=== PATIENT | female | born 1935 | race Caucasian/White ===

== ENCOUNTER → 2020-02-17 | Outpatient (CLI) | payer MEDICARE, OTHER ==
--- NOTE | 2020-02-17 12:36 | FL ---
EXAMINATION TYPE: FL barium swallow DATE OF EXAM: 02/17/2020 COMPARISON: None HISTORY: Foreign body sensation, dysphagia TECHNIQUE: Fluoroscopy time: 28 seconds Images: 7 Contrast: Isovue 370 Esophagus opens to normal caliber has normal contour to the gastroesophageal junction. Gastroesophage al junction opens to normal caliber. No suspicious intraluminal or extramural defects are evident. No radiopaque foreign bodies are identified. There is presbyesophagus within the distal esophagus with a few tertiary contractions present. There is complete stripping the esophageal bolus the horizontal drinking position. IMPRESSIONS: 1. Mild presbyesophagus. 2. No suspicious filling defects or radiopaque foreign bodies.
== END | disposition home or self-care (01) ==
LOC: RADUSWWP 09:21
PROVIDERS: ATTEND Family Medicine
DX: K22.8 Other specified diseases of esophagus (principal)
CPT/HCPCS: 74220; Q9967

== ENCOUNTER 2020-09-23 18:30 | Emergency (ER) | payer MEDICARE, OTHER ==
[2020-09-23 18:42] VITALS: BP 151/48; PULSE 73; RESP 16
[2020-09-23] MEDS ORDERED: TOPICAL SKIN ADHESIVE 1 EACH AMP TOPICAL STA (19:01)
[2020-09-23] MEDS ORDERED: DIPH,PERTUS(ACELL)TETVAC-LF 0.5 ML VIAL IM ONE (19:01)
--- NOTE | 2020-09-23 19:42 | ED ---
General Adult HPI - General Chief complaint: Wound/Laceration Stated complaint: dog scratch on arm Time Seen by Provider: 09/23/20 18:47 Source: patient, family Mode of arrival: wheelchair Limitations: no limitations - History of Present Illness Initial comments: 84-year-old female currently anticoagulated with Eliquis presents to the emergency room for a skin tear. Patient reports her dog was on her lap when he went to run off and her arm. This caused a small skin tear to the left forearm. However was bleeding more than a Band-Aid to control so they brought her into the emergency room. Patient does not think her tetanus is up-to-date. Patient states the bleeding has improved significantly since their arrival.Patient has no other complaints at this time including shortness of breath, chest pain, abdominal pain, nausea or vomiting, headache, or visual changes. - Related Data Home Medications Medication Instructions Recorded Confirmed Albuterol Sulfate [Proair Hfa] 1 puff INHALATION QID PRN 08/20/14 08/20/14 Levothyroxine Sodium [Synthroid] 25 mcg PO DAILY 08/20/14 08/20/14 Simvastatin 10 mg PO DAILY 08/20/14 08/20/14 glipiZIDE [Glipizide] 5 mg PO DAILY 08/20/14 08/20/14 lisinopriL [Zestril] 2.5 mg PO DAILY 08/20/14 08/20/14 metFORMIN HCL 500 mg PO DAILY 08/20/14 08/20/14 Allergies Allergy/AdvReac Type Severity Reaction Status Date / Time No Known Allergies Allergy Verified 09/23/20 18:37 Review of Systems ROS Statement: Those systems with pertinent positive or pertinent negative responses have been documented in the HPI. ROS Other: All systems not noted in ROS Statement are negative. Past Medical History Past Medical History: Asthma, Diabetes Mellitus Additional Past Medical History / Comment(s): Arthritis History of Any Multi-Drug Resistant Organisms: None Reported Past Surgical History: Appendectomy Additional Past Surgical History / Comment(s): Partial hysterectomy Past Anesthesia/Blood Transfusion Reactions: No Reported Reaction Additional Past Anesthesia/Blood Transfusion Reaction / Comment(s): Never had blood transfusion Past Psychological History: No Psychological Hx Reported Smoking Status: Never smoker Past Alcohol Use History: None Reported Past Drug Use History: None Reported - Past Family History Mother Family Medical History: Hypertension, Myocardial Infarction ([place]) Father Family Medical History: Cancer Additional Family Medical History / Comment(s): from cancer (lung) General Exam Limitations: no limitations General appearance: alert, in no apparent distress Head exam: Present: atraumatic, normocephalic, normal inspection Eye exam: Present: normal appearance, PERRL, EOMI. Absent: scleral icterus, conjunctival injection, periorbital swelling ENT exam: Present: normal exam, mucous membranes moist Neck exam: Present: normal inspection. Absent: tenderness, meningismus, lymphadenopathy Respiratory exam: Present: normal lung sounds bilaterally. Absent: respiratory distress, wheezes, rales, rhonchi, stridor Cardiovascular Exam: Present: regular rate, normal rhythm, normal heart sounds. Absent: systolic murmur, diastolic murmur, rubs, gallop, clicks Extremities exam: Present: other (Small 2 cm superficial skin tear to the dorsum of the left. Hemostasis nearly achieved at this time.) Course Vital Signs 09/23/20 18:38 Temperature 97.3 F L Pulse Rate 73 Respiratory 16 Rate Blood Pressure 151/48 O2 Sat by Pulse 98 Oximetry Medical Decision Making - Medical Decision Making Pressure was applied and Exofin was applied to the area. Hemostasis achieved. Tetanus was updated. Care parameters discussed. I did discuss watching for signs of infection and return if these occur. Disposition Clinical Impression: Skin tear Disposition: HOME SELF-CARE Condition: Good Instructions (If sedation given, give patient instructions): Skin Adhesive Care (ED), Skin Tear (ED) Additional Instructions: Please keep the area clean. Monitor for signs of infection such as spreading or streaking redness, drainage, or fever and return if these occur. Return if you have any other worsening symptoms. Otherwise glue will fall off on its own. Is patient prescribed a controlled substance at d/c from ED?: No Referrals: Elijah Valencia MD [Primary Care Provider] - 1-2 days Time of Disposition: 19:42
[2020-09-23 19:59] VITALS: TEMP 97.9
== END 2020-09-23 19:58 | disposition home or self-care (01) ==
LOC: EC 18:30
DX: S51.812A Laceration without foreign body of left forearm, initial encounter (principal); J45.909 Unspecified asthma, uncomplicated; E11.9 Type 2 diabetes mellitus without complications; M19.90 Unspecified osteoarthritis, unspecified site; Z90.49 Acquired absence of other specified parts of digestive tract; W54.8XXA Other contact with dog, initial encounter; Z79.84 Long term (current) use of oral hypoglycemic drugs
CPT/HCPCS: 90471; 90715; 99282

== ENCOUNTER 2022-07-01 22:36 | Inpatient (IN) | payer MEDICARE, OTHER ==
--- NOTE | 2022-07-01 22:45 | ED ---
Recheck HPI - General Stated Complaint: post op complication Time Seen by Provider: 07/01/22 22:41 Source: RN notes reviewed, old records reviewed Limitations: no limitations - History of Present Illness Initial Comments: This is an 86-year-old female to the ER today. Patient Dese for evaluation of postoperative bleeding. 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 Patient is on [place], surgery was done in office by primary care. Patient otherwise aside from that he has no complaints no lightheadedness dizziness weakness or complaint. Patient is bandaged appropriately MD Complaint: wound re-check -: hour(s) Returns Today for: persistent/worsening pain related to initial visit Symptoms Since Prior Visit: no new symptoms Context: planned re-check Associated Symptoms: none - Related Data Home Medications Medication Instructions Recorded Confirmed Albuterol Sulfate [Proair Hfa] 1 puff INHALATION QID PRN 08/20/14 08/20/14 Levothyroxine Sodium [Synthroid] 25 mcg PO DAILY 08/20/14 08/20/14 Simvastatin 10 mg PO DAILY 08/20/14 08/20/14 glipiZIDE [Glipizide] 5 mg PO DAILY 08/20/14 08/20/14 lisinopriL [Zestril] 2.5 mg PO DAILY 08/20/14 08/20/14 metFORMIN HCL 500 mg PO DAILY 08/20/14 08/20/14 Allergies Allergy/AdvReac Type Severity Reaction Status Date / Time No Known Allergies Allergy Verified 09/23/20 18:37 Review of Systems ROS Statement: Those systems with pertinent positive or pertinent negative responses have been documented in the HPI. ROS Other: All systems not noted in ROS Statement are negative. Past Medical History Past Medical History: Asthma, Diabetes Mellitus Additional Past Medical History / Comment(s): Arthritis History of Any Multi-Drug Resistant Organisms: None Reported Past Surgical History: Appendectomy Additional Past Surgical History / Comment(s): Partial hysterectomy Past Anesthesia/Blood Transfusion Reactions: No Reported Reaction Additional Past Anesthesia/Blood Transfusion Reaction / Comment(s): Never had blood transfusion Past Psychological History: No Psychological Hx Reported Smoking Status: Never smoker Past Alcohol Use History: None Reported Past Drug Use History: None Reported - Past Family History Mother Family Medical History: Hypertension, Myocardial Infarction ([place]) Father Family Medical History: Cancer Additional Family Medical History / Comment(s): from cancer (lung) General Exam General appearance: alert, in no apparent distress Head exam: Present: normocephalic, normal inspection. Absent: atraumatic (Patient has minimal bleeding above right eye) Eye exam: Present: normal appearance, PERRL, EOMI. Absent: scleral icterus, conjunctival injection, periorbital swelling ENT exam: Present: normal exam, mucous membranes moist Neck exam: Present: normal inspection. Absent: tenderness, meningismus, lymphadenopathy Respiratory exam: Present: normal lung sounds bilaterally. Absent: respiratory distress, wheezes, rales, rhonchi, stridor Cardiovascular Exam: Present: regular rate, normal rhythm, normal heart sounds. Absent: systolic murmur, diastolic murmur, rubs, gallop, clicks GI/Abdominal exam: Present: soft, normal bowel sounds. Absent: distended, tenderness, guarding, rebound, rigid Extremities exam: Present: normal inspection, full ROM, normal capillary refill. Absent: tenderness, pedal edema, joint swelling, calf tenderness Back exam: Present: normal inspection Neurological exam: Present: alert, oriented X3, CN II-XII intact Psychiatric exam: Present: normal affect, normal mood Skin exam: Present: warm, dry, intact, normal color. Absent: rash Course Vital Signs 07/01/22 22:41 Temperature 98.6 F Pulse Rate 59 L Respiratory 16 Rate Blood Pressure 171/50 O2 Sat by Pulse 99 Oximetry - Reevaluation(s) Reevaluation #1: 07/02/22 00:09 medical records reviewed Reevaluation #3: 07/02/22 00:09 Was pt. sent in by a medical professional or institution? @ -no Did you speak to anyone other than the patient for history? @ -no Did you review nursing and triage notes? @ -agree Were old charts reviewed? @ -no Differential Diagnosis? @ -mp EKG interpreted by me (3pts min.)? @ -[none] X-rays interpreted by me (1pt min.)? @ -[none] CT interpreted by me (1pt min.)? @ -[none] U/S interpreted by me (1pt. min.)? @ -[none] What testing was considered but not performed? (CT, X-rays, U/S, labs)? Why? @ no What meds were considered but not given? Why? @ -[none] Did you discuss the management of the patient with other professionals? @ -no Did you reconcile home meds? @ -[none] Was smoking cessation discussed for >3mins.? @ -[none] Was critical care preformed (if so, how long)? @ -[none] Were there social determinants of health that impacted care today? How? (Homelessness, low income, unemployed, alcoholism, drug addiction, transportation, low edu. Level, literacy, decrease access to med. care, senior living, rehab)? @ -no Was there de-escalation of care discussed even if they declined? (Discuss DNR or withdrawal of care, Hospice)? @ -no What co-morbidities impacted this encounter? (DM, HTN, Smoking, COPD, CAD, Cancer, CVA, Hep., AIDS, mental health diagnosis, sleep apnea, morbid obesity)? @ -no Was patient admitted / discharged? @ -admit Undiagnosed new problem with uncertain prognosis? @ -[none] Drug Therapy requiring intensive monitoring for toxicity (Heparin, Nitro, Insulin, Cardizem)? @ -[none] Were any procedures done? @ -[none] Diagnosis/symptom? @ -[default] Acute, or Chronic, or Acute on Chronic? @ -[default] Uncomplicated (without systemic symptoms) or Complicated (systemic symptoms)? @ -[default] Side effects of treatment? @ -[none] Exacerbation, Progression, or Severe Exacerbation] @ -[no] Poses a threat to life or bodily function? @ -[no] - Consultations Consultation #1: Spoke with Dr. Valencia who agrees to admit this patient Medical Decision Making - Medical Decision Making 86 female the admitted for postop bleeding. Wound care. Patient will be admitted, [place]quist currently and can be evaluated in the morning for repeat hemoglobin, evaluation by primary care Disposition Clinical Impression: Postoperative haemorrhage Disposition: ADMITTED IP TO THIS HOSP Condition: Fair Is patient prescribed a controlled substance at d/c from ED?: No Referrals: Elijah Valencia MD [Primary Care Provider] - 1-2 days Time of Disposition: 00:10
[2022-07-02] MEDS ORDERED: MORPHINE SULFATE 2 MG/ML SYRINGE IVP STA (00:03)
[2022-07-02] MEDS ORDERED: SODIUM CHLORIDE 0.9% 1,000 ML IV STA (00:03)
[2022-07-02] MEDS ORDERED: NALOXONE 0.4 MG/ML 1 ML VIAL IV PRN (00:05)
[2022-07-02] MEDS ORDERED: MORPHINE SULFATE 4 MG/ML SYRINGE IV PRN (00:05)
[2022-07-02] MEDS ORDERED: ONDANSETRON 4 MG/2 ML VIAL IVP PRN (00:05)
[2022-07-02] MEDS: SODIUM CHLORIDE 0.9% 1,000 ML IV SCH (00:37)
[2022-07-02 00:49] LABS: Basophils % (A) 0 %; Eosinophils # (A) 0.1 k/uL (0-0.7); Eosinophils % (A) 1 %; HCT 33.1 % (34.0-46.0); HGB 10.5 gm/dL (11.4-16.0); Lymphocytes # (A) 2.2 k/uL (1.0-4.8); Lymphocytes % (A) 29 %; MCH 29.3 pg (25.0-35.0); MCHC 31.8 g/dL (31.0-37.0); Mean Platelet Volume 7.6; Monocytes # (A) 0.4 k/uL (0-1.0); Monocytes % (A) 5 %; Neutrophils # (A) 4.7 k/uL (1.3-7.7); Neutrophils % (A) 63 %; Platelet Count 301 k/uL (150-450); RDW 13.5 % (11.5-15.5); WBC 7.5 k/uL (3.8-10.6)
[2022-07-02 01:11] LABS: Partial Thromboplastin Time 38.2 sec (22.0-30.0); Prothrombin Time 10.5 sec (9.0-12.0)
[2022-07-02 01:12] LABS: Calcium 8.9 mg/dL (8.4-10.2); Magnesium 2.1 mg/dL (1.6-2.3); Phosphorus 3.8 mg/dL (2.5-4.5); Total Bilirubin 0.3 mg/dL (0.2-1.3); Total Protein 6.5 g/dL (6.3-8.2)
[2022-07-02] MEDS ORDERED: GELATIN SPONGE,ABSORB (LARGE) 1 EACH SPONGE TOPICAL STA (03:16)
[2022-07-02 08:39] LABS: Glucose,Whole Blood 113 mg/dL (70-110)
[2022-07-02 12:30] LABS: Glucose,Whole Blood 102 mg/dL (70-110)
[2022-07-02 12:47] VITALS: BMI 18.3
[2022-07-02 17:31] LABS: Glucose,Whole Blood 108 mg/dL (70-110)
--- NOTE | 2022-07-02 17:59 | HP ---
HISTORY AND PHYSICAL CHIEF COMPLAINT: Postsurgical hemorrhage. HISTORY OF PRESENT ILLNESS: This is another admission for this 86-year-old white female with dementia. She was in the office the day prior to the admission for removal of 2 recurrent basal cell carcinomas in the right church. When she left the office, there was no bleeding, but apparently, she went home and then started picking at the wound, whereby it started to bleed, and her brought her back to the emergency room, where the bleeding was stopped with some difficulty. She is on anticoagulants. REVIEW OF SYSTEMS: Not obtainable. Past medical history, family history, and personal and social histories are basically unobtainable and noncontributory. PHYSICAL EXAMINATION: VITAL SIGNS: Blood pressure is 132/74 with a pulse of 81, respirations are 19, and she is afebrile. GENERAL: She appears to be slender and in no acute distress. SKIN: Dry. HEAD, EARS, EYES, NOSE, MOUTH, AND THROAT: Reveal packing on the right temporal wound with a head dressing. CHEST: Clear. CARDIAC: Normal except for atrial fibrillation. ABDOMEN: Soft and nontender EXTREMITIES: Normal. NEUROLOGIC: She is intact except for dementia. IMPRESSION: She is admitted to the hospital with diagnoses of: 1. Right church biopsy site postoperative bleeding. 2. Atrial fibrillation. 3. Dementia. PLAN: Bedrest with wound compression and protection from the patient's manipulation. MMODL / IJN: [id number] /
--- NOTE | 2022-07-02 20:05 | PN ---
PROGRESS NOTE CHIEF COMPLAINT: Postop biopsy bleed from the right yarsanism. HISTORY OF PRESENT ILLNESS: This lady is stable. Apparently, she was in the emergency room all night with continued bruising. She came up to the floor this morning. Treated with gel pack on the right yarsanism, saturated, but also dried out. There is no current bleeding. PHYSICAL EXAMINATION: VITAL SIGNS: Normal. CHEST: Clear. CARDIAC: Normal. IMPRESSION: Status post biopsy slight bleeding from the right yarsanism. PLAN: 1. Redress and cover the wound to keep the patient from agitating it. 2. Stop her anticoagulants. MMODL / IJN: [id number] /
[2022-07-02] MEDS: METOPROLOL TARTRATE 50 MG TAB PO SCH (21:29)
[2022-07-03] MEDS: SODIUM CHLORIDE 0.9% 1,000 ML IV SCH (01:20)
[2022-07-03] MEDS: lisinopriL 20 MG TAB PO SCH (08:06)
[2022-07-03] MEDS: OXYBUTYNIN XL 5 MG TAB.ER.24 PO SCH (08:06)
[2022-07-03] MEDS: amLODIPine 5 MG TAB PO SCH (08:06)
[2022-07-03] MEDS: METOPROLOL TARTRATE 50 MG TAB PO SCH ×2 (08:06→20:18)
[2022-07-03 09:17] LABS: Basophils # (A) 0.05 X 10*3/uL (0.00-0.10); Basophils % (A) 0.7 %; Eosinophils # (A) 0.12 X 10*3/uL (0.04-0.35); Eosinophils % (A) 1.6 %; HCT 28.2 % (37.2-46.3); HGB 8.6 g/dL (12.0-15.0); Immature Grans, Automated 0.4 %; Lymphocytes # (A) 2.52 X 10*3/uL (0.90-5.00); Lymphocytes % (A) 32.9 %; MCH 29.4 pg (27.0-32.0); MCHC 30.5 g/dL (32.0-37.0); MCV 96.2 fL (80.0-97.0); Mean Platelet Volume 10.2 fL (9.5-12.2); Monocytes # (A) 0.67 X 10*3/uL (0.20-1.00); Monocytes % (A) 8.8 %; NRBC Per 100 WBC 0 /100 WBCS (0.0-0.0); Neutrophils # (A) 4.26 X 10*3/uL (1.80-7.70); Neutrophils % (A) 55.6 %; Platelet Count 278 X 10*3/uL (140-440); RBC 2.93 X 10*6/uL (4.10-5.20); RDW 13.5 % (11.5-14.5); WBC 7.65 X 10*3/uL (4.50-10.00)
[2022-07-03] MEDS ORDERED: SODIUM CHLORIDE 0.9% 250 ML IV ONE (19:45)
--- NOTE | 2022-07-03 23:47 | PN ---
PROGRESS NOTE CHIEF COMPLAINT: Status post postoperative hemorrhage from biopsy site of the right catholic. HISTORY OF PRESENT ILLNESS: This lady is doing well, but her potassium is up slightly and her hemoglobin is 8.6. She is quite dry and not eating and drinking well. PHYSICAL EXAMINATION: GENERAL: She remains slightly pale. She is arousable. She does have dementia. There has been no further bleeding from the right side of the catholic and the Gel-Foam and hair are matted and will be discharged. CHEST: Clear. CARDIAC: Normal. IMPRESSION: 1. Status post bleed from biopsy site of the right catholic. 2. Blood loss anemia. 3. Hyperkalemia. 4. Dementia. 5. Dehydration. We will start IV fluids and follow hemoglobin and potassium over the next day or two. MARITZA / THADDEUSN: [id number] /
[2022-07-04] MEDS: SODIUM CHLORIDE 0.9% 1,000 ML IV SCH ×3 (00:52→20:46)
[2022-07-04] MEDS: METOPROLOL TARTRATE 50 MG TAB PO SCH ×2 (09:34→20:46)
[2022-07-04] MEDS: amLODIPine 5 MG TAB PO SCH (09:34)
[2022-07-04] MEDS: lisinopriL 20 MG TAB PO SCH (09:34)
[2022-07-04] MEDS: OXYBUTYNIN XL 5 MG TAB.ER.24 PO SCH (09:48)
[2022-07-04 12:50] LABS: ALT 13 U/L (4-34); AST 21 U/L (14-36); African American GFR (CKD) 51 (>60 ml/min/1.73 sqM); Albumin 3.2 g/dL (3.5-5.0); Albumin/Globulin Ratio 1.3; Alkaline Phosphatase 47 U/L (38-126); Anion Gap 3 mmol/L; Blood Urea Nitrogen 26 mg/dL (7-17); Calcium 8.4 mg/dL (8.4-10.2); Carbon Dioxide 24 mmol/L (22-30); Chloride 115 mmol/L (98-107); Globulin 2.5 g/dL; Glucose 95 mg/dL (74-99); Non-African American GFR(CKD) 45 (>60 ml/min/1.73 sqM); Potassium 5.3 mmol/L (3.5-5.1); Sodium 142 mmol/L (137-145); Total Bilirubin 0.2 mg/dL (0.2-1.3); Total Protein 5.7 g/dL (6.3-8.2)
[2022-07-04 18:30] LABS: Basophils # (A) 0.03 X 10*3/uL (0.00-0.10); Basophils % (A) 0.4 %; Eosinophils # (A) 0.12 X 10*3/uL (0.04-0.35); Eosinophils % (A) 1.7 %; HCT 28.3 % (37.2-46.3); HGB 8.4 g/dL (12.0-15.0); Immature Grans, Automated 0.3 %; Lymphocytes # (A) 2.33 X 10*3/uL (0.90-5.00); Lymphocytes % (A) 32.7 %; MCH 29.8 pg (27.0-32.0); MCHC 29.7 g/dL (32.0-37.0); MCV 100.4 fL (80.0-97.0); Mean Platelet Volume 10.7 fL (9.5-12.2); Monocytes # (A) 0.66 X 10*3/uL (0.20-1.00); Monocytes % (A) 9.3 %; NRBC Per 100 WBC 0 /100 WBCS (0.0-0.0); Neutrophils # (A) 3.97 X 10*3/uL (1.80-7.70); Neutrophils % (A) 55.6 %; Platelet Count 280 X 10*3/uL (140-440); RBC 2.82 X 10*6/uL (4.10-5.20); RDW 13.8 % (11.5-14.5); WBC 7.13 X 10*3/uL (4.50-10.00)
[2022-07-05 07:16] VITALS: BP 117/53; PULSE 72; RESP 16; TEMP 97.6
[2022-07-05] MEDS: amLODIPine 5 MG TAB PO SCH (08:54)
[2022-07-05] MEDS: OXYBUTYNIN XL 5 MG TAB.ER.24 PO SCH (08:54)
[2022-07-05] MEDS: lisinopriL 20 MG TAB PO SCH (08:54)
[2022-07-05] MEDS: METOPROLOL TARTRATE 50 MG TAB PO SCH (08:54)
--- NOTE | 2022-07-05 23:49 | DS ---
DISCHARGE SUMMARY CHIEF COMPLAINT: Postop hemorrhage from biopsy sites on the right jewish. HISTORY OF PRESENT ILLNESS AND PHYSICAL EXAMINATION: Details of this lady's history and physical can be found in the initial workup. LABORATORY STUDIES: While she was in the hospital, she had laboratory studies, details of which can be found in the laboratory section of her chart. COURSE IN THE HOSPITAL: After admission, she was placed on bedrest, started on fluids. Gel pack was applied along with head dressing and the bleeding stopped. Hemoglobin dropped to 8.6, but no further. She was dehydrated and an IV was placed and IV fluids increased. Potassium is also slightly elevated, but this came down and she is doing well enough to go home on the . She will go home on usual activity, diet, and medication and be seen in the office in several days. FINAL DIAGNOSES: 1. Postoperative hemorrhage from biopsies of basal cell carcinomas on the right jewish. 2. Atrial fibrillation. 3. Hypothyroidism. 4. Mild dementia. 5. Chronic obstructive pulmonary disease. OPERATIONS: None. CONSULTATION: None. She is improved. MMJAMESL / THADDEUSN: [id number] /
--- NOTE | 2022-07-08 14:25 | CDI ---
Documentation Clarification Form Date: 07/08/2022 2:14:27 PM From: Vandana Machuca Admit Date: 07/04/2022 12:09:00 PM Patient Name: Nancy Sen Visit Number: [id number] Discharge Date: 07/05/2022 11:45:00 AM ATTENTION: The Clinical Documentation Specialists (CDI) and [facility] Coding Staff appreciate your assistance in clarifying documentation. Please respond to the clarification below the line at the bottom and electronically sign. The CDI & [facility] Coding staff will review the response and follow-up if needed. Please note: Queries are made part of the Legal Health Record. If you have any questions, please contact the author of this message via ITS. Dr. Elijah Valencia Blood loss anemia is documented in progress note 07/03/22. Additional specificity regarding the acuity of anemia is requested. History/Risk Factors: recent biopsy of the right roman catholic- basal cell carcinoma Clinical indicators: post op hemorrhage from biopsy site of the right roman catholic, anemia Hemoglobin: 07/02/22: 10.5 07/03/22: 8.6 07/04/22: 8.4 Hematocrit: 07/02/22: 33.1 07/03/22: 28.2 07/04/22: 28.3 Treatment: IV fluids, treated with Gel pack, dressed and covered wound, monitored HGB Please clarify the acuity of blood loss anemia: [ ] Acute blood loss anemia [ ] Acute on chronic blood loss anemia [ ] Chronic blood loss anemia [ ] Unable to determine [ ] Other, please specify see separate dictation for answer MTDD
--- NOTE | 2022-08-22 04:25 | MISC ---
MISCELLANOUS REPORT Chronic blood loss anemia. MMODL / IJN: [id number] /
== END 2022-07-05 11:45 | disposition home or self-care (01) | DRG 921 ==
LOC: EC 22:36 → 6NMEDSUR 07-02 00:06 → OBSVTOIN 07-04 12:09
PROVIDERS: ADMIT Family Medicine; ATTEND Family Medicine
DX: L76.21 Postprocedural hemorrhage of skin and subcutaneous tissue following a dermatologic procedure (principal); Y84.8 Other medical procedures as the cause of abnormal reaction of the patient, or of later complication, without mention of misadventure at the time of the procedure; D50.0 Iron deficiency anemia secondary to blood loss (chronic); J44.9 Chronic obstructive pulmonary disease, unspecified; I48.91 Unspecified atrial fibrillation; C44.319 Basal cell carcinoma of skin of other parts of face; F03.A0 Unspecified dementia, mild, without behavioral disturbance, psychotic disturbance, mood disturbance, and anxiety; E87.5 Hyperkalemia; E86.0 Dehydration; E11.9 Type 2 diabetes mellitus without complications; E03.9 Hypothyroidism, unspecified; Z79.01 Long term (current) use of anticoagulants; Z79.890 Hormone replacement therapy; Z79.84 Long term (current) use of oral hypoglycemic drugs; Z71.3 Dietary counseling and surveillance
CPT/HCPCS: 80053; 83605; 83735; 83880; 84100; 84484; 85025; 85610; 85730; 87040; 93005; 94760; 96361; 96374; 96375; 99285

== ENCOUNTER 2023-07-19 14:37 | Emergency (ER) | payer MEDICARE, OTHER ==
[2023-07-19 14:58] VITALS: RESP 20
--- NOTE | 2023-07-19 15:35 | XR ---
EXAMINATION TYPE: XR KUB DATE OF EXAM: 07/19/2023 3:10 PM CLINICAL INDICATION:Female, 87 years old with history of Constipation, abdominal pain; COMPARISON: 08/19/2014. TECHNIQUE: One radiographic view of the abdomen was obtained. FINDINGS: Moderate feces seen throughout the colon. The bowel gas pattern is nonspecific without dila troy loops of small or large bowel. There is no evidence for organomegaly or pneumoperitoneum. The os seous structures are intact. No abnormal calcifications are present. Fecal material and gas are demo nstrated throughout the colon and rectum. Multilevel degeneration changes throughout the spine. IMPRESSION: Nonspecific bowel gas pattern without radiographic evidence for acute process.
[2023-07-19] MEDS: MAGNESIUM HYDROXIDE 2,400 MG/30 ML CUP PO STA (17:46)
--- NOTE | 2023-07-19 17:46 | ED ---
General Adult HPI - General Chief complaint: Recheck/Abnormal Lab/Rx Stated complaint: pain all over Time Seen by Provider: 07/19/23 16:22 Source: patient Mode of arrival: ambulatory Limitations: no limitations - History of Present Illness Initial comments: 87-year-old female presenting to the ED with a chief complaint of constipation. Per patient and this has been an ongoing issue. Today, reports that he tried 2 enemas however this did not provide relief prompting presentation to the ED for further evaluation. Patient at this time notes no other complaints of the constipation. Denies abdominal pain. No nausea or vomiting. No chest pain or shortness of breath. No other complaints at this time. - Related Data Home Medications Medication Instructions Recorded Confirmed Albuterol Sulfate [Proair Hfa] 2 puff INHALATION RT-QID PRN 08/20/14 07/02/22 Levothyroxine Sodium [Synthroid] 25 mcg PO DAILY 08/20/14 07/02/22 Apixaban [Eliquis] 2.5 mg PO BID 07/02/22 07/02/22 Aspirin EC [Ecotrin Low Dose] 81 mg PO DAILY 07/02/22 07/02/22 Atorvastatin [Lipitor] 10 mg PO DAILY 07/02/22 07/02/22 Budesonide [Pulmicort] 0.5 mg INHALATION RT-BID 07/02/22 07/02/22 Ipratropium-Albuterol Nebulize 3 ml INHALATION RT-BID 07/02/22 07/02/22 [Duoneb 0.5 mg-3 mg/3 ml Soln] Isosorbide Mononitrate ER [Imdur] 30 mg PO DAILY 07/02/22 07/02/22 Metoprolol Tartrate [Lopressor] 50 mg PO BID 07/02/22 07/02/22 Oxybutynin Xl [Ditropan XL] 5 mg PO DAILY 07/02/22 07/02/22 amLODIPine [Norvasc] 5 mg PO DAILY 07/02/22 07/02/22 lisinopriL [Prinivil] 20 mg PO DAILY 07/02/22 07/02/22 Previous Rx's Medication Instructions Recorded Magnesium Hydroxide [Milk of 2,400 mg PO DIRECTED PRN 5 Days 07/19/23 Magnesia Concentrate] #100 ml Allergies Allergy/AdvReac Type Severity Reaction Status Date / Time No Known Allergies Allergy Verified 07/19/23 14:50 Review of Systems ROS Statement: Those systems with pertinent positive or pertinent negative responses have been documented in the HPI. ROS Other: All systems not noted in ROS Statement are negative. Past Medical History Past Medical History: Asthma, CVA/TIA, Diabetes Mellitus Additional Past Medical History / Comment(s): Arthritis had a stroke a couple years ago. Has been confused since then does good getting around the house History of Any Multi-Drug Resistant Organisms: None Reported Past Surgical History: Appendectomy Additional Past Surgical History / Comment(s): Partial hysterectomy Past Anesthesia/Blood Transfusion Reactions: No Reported Reaction Additional Past Anesthesia/Blood Transfusion Reaction / Comment(s): Never had blood transfusion Past Psychological History: No Psychological Hx Reported Smoking Status: Never smoker Past Alcohol Use History: None Reported Past Drug Use History: None Reported - Past Family History Mother Family Medical History: Hypertension, Myocardial Infarction (HI) Father Family Medical History: Cancer Additional Family Medical History / Comment(s): from cancer (lung) General Exam Limitations: no limitations General appearance: alert, in no apparent distress Eye exam: Present: normal appearance Neck exam: Present: normal inspection Respiratory exam: Present: normal lung sounds bilaterally Cardiovascular Exam: Present: regular rate, normal rhythm GI/Abdominal exam: Present: soft (No tenderness to palpation. No rebound guarding or rigidity. Bowel sounds active.) Neurological exam: Present: alert, oriented X3 Skin exam: Present: warm, dry Course Vital Signs 07/19/23 14:48 Temperature 98.1 F Pulse Rate 79 Respiratory 20 Rate Blood Pressure 149/65 O2 Sat by Pulse 98 Oximetry Medical Decision Making - Medical Decision Making Was pt. sent in by a medical professional or institution (, PA, [employer], urgent care, hospital, or [facility]...) When possible be specific @ -No Did you speak to anyone other than the patient for history (EMS, parent, family, police, friend...)? What history was obtained from this source @ -Spoke to both patient and her for history. For further details please see HPI. Did you review nursing and triage notes (agree or disagree)? Why? @ -I reviewed and agree with nursing and triage notes Were old charts reviewed (outside hosp., previous admission, EMS record, old EKG, old radiological studies, urgent care reports/EKG's, [facility] records)? Report findings @ -No old charts were reviewed Differential Diagnosis (chest pain, altered mental status, abdominal pain women, abdominal pain men, vaginal bleeding, weakness, fever, dyspnea, syncope, headache, dizziness, GI bleed, back pain, seizure, CVA, palpatations, mental health, musculoskeletal)? @ -Differential Abdominal Pain Men: Appendicitis, cholecystitis, diverticulosis, ischemic bowel, pancreatitis, hepatitis, UTI, gastroenteritis, AAA, incarcerated hernia, bowel obstruction, constipation, inflammatory bowel, hepatitis, peptic ulcer disease, splenic infarction, perforated viscus, testicular torsion, this is not meant to be an all-inclusive list EKG interpreted by me (3pts min.). @ -None X-rays interpreted by me (1pt min.). @ -X-ray interpreted by me showing evidence of constipation however no evidence of obstruction or other acute finding. CT interpreted by me (1pt min.). @ -None done U/S interpreted by me (1pt. min.). @ -None done What testing was considered but not performed or refused? (CT, X-rays, U/S, labs)? Why? @ -None What meds were considered but not given or refused? Why? @ -None Did you discuss the management of the patient with other professionals (professionals i.e. , PA, [employer], lab, RT, psych nurse, social work job titles, business lawyer, teacher, employee service officer, block and case maker)? Give summary @ -No Was smoking cessation discussed for >3mins.? @ -No Was critical care preformed (if so, how long)? @ -No Were there social determinants of health that impacted care today? How? (Homelessness, low income, unemployed, alcoholism, drug addiction, transportation, low edu. Level, literacy, decrease access to med. care, penitentiary, rehab)? @ -No Was there de-escalation of care discussed even if they declined (Discuss DNR or withdrawal of care, Hospice)? DNR status @ -No What co-morbidities impacted this encounter? (DM, HTN, Smoking, COPD, CAD, Cancer, CVA, ARF, Chemo, Hep., AIDS, mental health diagnosis, sleep apnea, morbid obesity)? @ -History of constipation Was patient admitted / discharged? Hospital course, mention meds given and route, prescriptions, significant lab abnormalities, going to OR and other pertinent info. @ -Discharge 87-year-old female presenting to the ED with a chief complaint of constipation which has been an ongoing issue however today tried 2 enemas which did not provide relief prompting presentation to the ED for further evaluation. Patient denies any abdominal pain nausea or vomiting. Abdominal x-ray shows no evidence of obstruction at this time. Exam at this time is also benign. Patient provided a dose of milk of magnesia here in the ED and provided prescription for milk of magnesia. Discharged home in stable condition and advised follow-up with PCP. Discussed return precautions with patient's who verbalized agreement. Undiagnosed new problem with uncertain prognosis? @ -No Drug Therapy requiring intensive monitoring for toxicity (Heparin, Nitro, In sulin, Cardizem)? @ -No Were any procedures done? @ -No Diagnosis/symptom? @ -Constipation Acute, or Chronic, or Acute on Chronic? @ -Acute Uncomplicated (without systemic symptoms) or Complicated (systemic symptoms)? @ -Uncomplicated Side effects of treatment? @ -No Exacerbation, Progression, or Severe Exacerbation? @ -No Poses a threat to life or bodily function? How? (Chest pain, [place], HI, pneumonia, PE, COPD, DKA, ARF, appy, cholecystitis, CVA, Diverticulitis, Homicidal, Suicidal, threat to staff... and all critical care pts) @ -No Disposition Clinical Impression: Constipation Disposition: HOME SELF-CARE Condition: Good Instructions (If sedation given, give patient instructions): Magnesium Hydroxide (By mouth), Constipation (ED), High Fiber Diet (ED) Additional Instructions: Please return to the Emergency Department if symptoms worsen or any other concerns. Please follow-up with your PCP. Prescriptions: Magnesium Hydroxide [Milk of Magnesia Concentrate] 2,400 mg PO DIRECTED PRN 5 Days #100 ml PRN Reason: Constipation Is patient prescribed a controlled substance at d/c from ED?: No Referrals: Elijah Valencia MD [Primary Care Provider] - 1-2 days Time of Disposition: 17:46
[2023-07-19 18:14] VITALS: BP 132/70; PULSE 70; TEMP 97.9
== END 2023-07-19 18:02 | disposition home or self-care (01) ==
LOC: EC 14:37
DX: K59.00 Constipation, unspecified (principal); J45.909 Unspecified asthma, uncomplicated; E11.9 Type 2 diabetes mellitus without complications; Z79.51 Long term (current) use of inhaled steroids; Z86.73 Personal history of transient ischemic attack (TIA), and cerebral infarction without residual deficits; Z79.82 Long term (current) use of aspirin; Z79.01 Long term (current) use of anticoagulants
CPT/HCPCS: 74018; 99283